=== PATIENT | female | born 1970 | race African-American/Black ===

== ENCOUNTER 2019-11-14 21:38 | Observation (INO) | payer OTHER, SELFPAY ==
[2019-11-14 22:19] LABS: Absolute Lymphocytes (CBC) 2.5 K/uL (0.7-4.9); Basophils % 1.1 % (0-1.3); Hematocrit 39.2 % (36.0-45.0); Lymphocytes % 36.5 % (15.3-44.8); MPV 9.2 fL (7.6-11.3)
[2019-11-14 22:38] LABS: ALT/SGPT 38 U/L (12-78); AST/SGOT 26 U/L (15-37); Albumin 3.5 g/dL (3.4-5.0); Alkaline Phosphatase 77 U/L (45-117); BUN Blood Urea Nitrogen 11 mg/dL (7-18); Bicarbonate 29 mmol/L (21-32); Bilirubin Direct 0.1 mg/dL (0-0.2); Bilirubin Total 0.5 mg/dL (0.2-1.0); Glucose Level 221 mg/dL (74-106); Lipase 137 U/L (73-393); NT PRO-BNP 62 pg/mL (<125); Potassium 3.6 mmol/L (3.5-5.1); Protein, Total 7.4 g/dL (6.4-8.2); Sodium Level 139 mmol/L (136-145); Troponin (Emerg Dept Use Only) < 0.02 ng/mL (0.0-0.045)
--- NOTE | 2019-11-14 22:55 | EDPHYS ---
Physician Documentation [facility] Name: Prakash Hughes Age: 49 yrs Sex: Female : 1970 Arrival Date: 11/14/2019 Time: 21:45 Bed 8 Private MD: ED Physician Edgar Jauregui HPI: 11/14 22:17 This 49 yrs old Black Female presents to ER via EMS with complaints of Chest Pain. rn 22:17 The patient or guardian reports chest pain that is located primarily in the substernal rn area. Onset: 2 week(s) ago. The pain does not radiate. Associated signs and symptoms: Pertinent positives: shortness of breath, Pertinent negatives: cough, diaphoresis, near syncope, syncope, vomiting. The chest pain is described as squeezing. Duration: The patient or guardian reports multiple episodes, that are intermittent. Modifying factors: The symptoms are alleviated by nothing. the symptoms are aggravated by exertion, twisting torso. Severity of pain: At its worst the pain was mild in the emergency department the pain has improved. The patient has not experienced similar symptoms in the past. Reports chest pain, intermittent for 2 weeks, central, feels tight, no radiation, reports worse with exertion and assoc with sob. Also worse when sleeping and turning over to left side. Reports chronic abdominal pain but denies new symptoms. No fever. No trauma. Had neg stress test and nuclear stress test 3 years ago. Non-smoker. Leaves on [employer] tomorrow and is from out of town, so came in for evaluation. . 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 - Coronavirus screen:: The patient has NOT traveled to [place] in the past 14 days. Proceed with normal triage process as indicated. - Social history:: Smoking status: unknown Patient/guardian denies using alcohol, street drugs. - Family history:: not pertinent. - Hospitalizations: : No recent hospitalization is reported. - Ebola Screening: : Patient negative for fever greater than or equal to 101.5 degrees Fahrenheit, and additional compatible Ebola Virus Disease symptoms Patient denies exposure to infectious person Patient denies travel to an Ebola-affected area in the 21 days before illness onset. ROS: 22:17 Constitutional: Negative for fever, chills, and weight loss, Eyes: Negative for injury, rn pain, redness, and discharge, Cardiovascular: Negative for palpitations Respiratory: Negative for cough, wheezing, and pleuritic chest pain, Abdomen/GI: Negative for vomiting, diarrhea, and constipation, has had 2 bowel movements today MS/Extremity: Negative for injury and deformity, Skin: Negative for injury, rash, and discoloration, Neuro: Negative for headache, weakness, numbness, tingling, and seizure. Exam: 22:07 ECG was reviewed by the Attending Physician. rn 22:17 Constitutional: This is a well developed, well nourished patient who is awake, alert, rn and in no acute distress. Head/Face: Normocephalic, atraumatic. Eyes: Pupils equal round and reactive to light, extra-ocular motions intact. Lids and lashes normal. Conjunctiva and sclera are non-icteric and not injected. Cornea within normal limits. Periorbital areas with no swelling, redness, or edema. ENT: MMM Cardiovascular: Regular rate and rhythm. No pulse deficits. Respiratory: Lungs have equal breath sounds bilaterally, clear to auscultation. No increased work of breathing, no retractions or nasal flaring. Abdomen/GI: soft, non-tender, non-distended Skin: Warm, dry MS/ Extremity: Pulses equal, no cyanosis. Neurovascular intact. Full, normal range of motion. Equal circumference. Neuro: Awake and alert, GCS 15, oriented to person, place, time, and situation. Cranial nerves II-XII grossly intact. Motor strength 5/5 in all extremities. Sensory grossly intact. Vital Signs: 21:45 BP 160 / 77; Pulse 78; Resp 19; Temp 98.4; Pulse Ox 99% ; Weight 78.02 kg; Height 5 ft. rr5 3 in. (160.02 cm); Pain 4/10; 22:12 BP 156 / 61; Pulse 69; Resp 18; Pulse Ox 99% ; rr5 22:45 BP 125 / 75; Pulse 74; Resp 16; Pulse Ox 99% on R/A; rr5 11/15 00:00 BP 116 / 57; Pulse 66; Resp 15; Pulse Ox 96% on R/A; rr5 01:06 BP 127 / 71; Pulse 60; Resp 16; Temp 98.4; Pulse Ox 99% on R/A; rr5 11/14 21:45 Body Mass Index 30.47 (78.02 kg, 160.02 cm) rr5 MDM: 11/14 21:53 Patient medically screened. rn 22:49 Differential diagnosis: acute myocardial infarction, acute pericarditis, anxiety, rn coronary artery disease chest wall pain, congestive heart failure Cholelithiasis costochondritis, esophagitis, gastritis, gastroesophageal reflux disease (GERD), pancreatitis, peptic ulcer disease, pericarditis, pleurisy, pneumothorax, stable angina. The patient was given aspirin in the Emergency Department. 22:50 Data reviewed: vital signs, nurses notes, lab test result(s), EKG, radiologic studies, rn plain films, and as a result, I will discharge patient. Counseling: I had a detailed discussion with the patient and/or guardian regarding: the historical points, exam findings, and any diagnostic results supporting the discharge/admit diagnosis, lab results, radiology results, the need for further work-up and treatment in the hospital. Response to treatment: the patient's symptoms have markedly improved after treatment, and as a result, I will discharge patient. Admission orders: after a detailed discussion of the patient's condition and case, the admit orders are written by me. ED course: Pt with ongoing chest pain for 2 weeks, neg trop, has HTN/HLD, no other acute cause found. . 11/14 21:53 Order name: Basic Metabolic Panel; Complete Time: 22:41 rn 11/14 21:53 Order name: CBC with Diff; Complete Time: 22:23 rn 11/14 21:53 Order name: LFT's; Complete Time: 22:41 rn 11/14 21:53 Order name: NT PRO-BNP; Complete Time: 22: rn 11/14 21:53 Order name: Troponin (emerg Dept Use Only); Complete Time: 22:41 rn 11/14 21:53 Order name: Lipase; Complete Time: 22:41 11/14 21:53 Order name: XRAY Chest (1 view) 11/14 21:53 Order name: EKG; Complete Time: 21:54 rn 11/15 00:13 Order name: Lipid Profile [facility] 11/15 00:13 Order name: Troponin I [facility] 11/15 00:13 Order name: Troponin I [facility] 11/15 00:26 Order name: CONS Physician Consult [facility] 11/15 00:26 Order name: Echo with Doppler [facility] 11/14 21:53 Order name: Cardiac monitoring; Complete Time: 21:59 rn 11/14 21:53 Order name: EKG - Nurse/Tech; Complete Time: 22:00 11/14 21:53 Order name: IV Saline Lock; Complete Time: 22:00 11/14 21:53 Order name: Labs collected and sent; Complete Time: 22:00 11/14 21:53 Order name: O2 Per Protocol; Complete Time: 22:00 11/14 21:53 Order name: O2 Sat Monitoring; Complete Time: 22: 11/15 00:27 Order name: EKG Electrocardiogram EDOH EC:07 Rate is 65 beats/min. Rhythm is regular. QRS [place] is Normal. [place] interval is normal. QRS rn interval is normal. QT interval is normal. No Q waves. T waves are Normal. No ST changes noted. Clinical impression: Normal ECG. Interpreted by me. Reviewed by me. Administered Medications: 22:51 CANCELLED (patient already received ASA from EMS): Aspirin Chewable Tablet 324 mg PO rr5 once; 81 mg tablets x 4 Disposition: 11/14/19 22:54 Hospitalization ordered by Montana Booker for Observation. Preliminary diagnosis is Chest pain, unspecified. - Bed requested for Telemetry/MedSurg (observation). - Status is Observation. rr5 - Condition is Stable. - Problem is new. - Symptoms have improved. Signatures: Dispatcher [employer] EDOH Edgar Jauregui MD MD rn Lasagna, Tonya RN RN tl1 Wilfredo Yang RN RN rr5 Corrections: (The following items were deleted from the chart) 22:51 22:50 Aspirin Chewable Tablet 324 mg PO once; 81 mg tablets x 4 ordered. rn rr5 11/15 00:52 11/14 22:54 Hospitalization Ordered by Montnaa Booker MD for Observation. Preliminary tl1 diagnosis is Chest pain, unspecified. Bed requested for Telemetry/MedSurg (observation). Status is Observation. Condition is Stable. Problem is new. Symptoms have improved. rn 11/15 01:05 11/14 21:50 Coronavirus screen: The patient HAS traveled to [place] in the past 14 days. rr5 The patient does NOT have a fever and/or cough. Proceed with normal triage procedures. rr5 11/15 00: 00:52 11/14/2019 22:54 Hospitalization Ordered by Montana Booker MD for Observation. rr5 Preliminary diagnosis is Chest pain, unspecified. Bed requested for Telemetry/MedSurg (observation). Status is Observation. Condition is Stable. Problem is new. Symptoms have improved. tl1
--- NOTE | 2019-11-14 22:55 | ER ---
Nurse's Notes [facility] Name: Prakash Hughes Age: 49 yrs Sex: Female : 1970 Arrival Date: 11/14/2019 Time: 21:45 Bed 8 Private MD: Diagnosis: Chest pain, unspecified Presentation: 11/14 21:40 Presenting complaint: EMS states: complaining of chest pain for 2 weeks, gets worse at rr5 night and when trying to lay down . audible wheezing sound noted. 21:40 Transition of care: patient was not received from another setting of care. Onset of rr5 symptoms was October 2019. Risk Assessment: Do you want to hurt yourself or someone else? Patient reports no desire to harm self or others. Initial Sepsis Screen: Does the patient meet any 2 criteria? No. Patient's initial sepsis screen is negative. Does the patient have a suspected source of infection? No. Patient's initial sepsis screen is negative. Care prior to arrival: IV cannula g 20 at right AC Medication(s) given: ASA, 325 mg, zofran 4 mg. 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 - Coronavirus screen:: The patient has NOT traveled to [place] in the past 14 days. Proceed with normal triage process as indicated. - Social history:: Smoking status: unknown Patient/guardian denies using alcohol, street drugs. - Family history:: not pertinent. - Hospitalizations: : No recent hospitalization is reported. - Ebola Screening: : Patient negative for fever greater than or equal to 101.5 degrees Fahrenheit, and additional compatible Ebola Virus Disease symptoms Patient denies exposure to infectious person Patient denies travel to an Ebola-affected area in the 21 days before illness onset. Screenin:45 Abuse screen: Denies threats or abuse. Denies injuries from another. Nutritional rr5 screening: No deficits noted. Tuberculosis screening: No symptoms or risk factors identified. Fall Risk IV access (20 points). Total Hodge Fall Scale indicates No Risk (0-24 pts). Assessment: 21:45 General: Appears in no apparent distress. uncomfortable, Behavior is calm, cooperative, rr5 appropriate for age. 21:45 Pain: Complains of pain in chest Pain radiates to back Pain currently is 4 out of 10 on rr5 a pain scale. Quality of pain is described as sharp, Pain began 2 weeks Is continuous. Neuro: Level of Consciousness is awake, alert, obeys commands, Oriented to person, place, time, situation, Appropriate for age. Cardiovascular: Reports chest pain, Capillary refill < 3 seconds Patient's skin is warm and dry. Respiratory: Airway is patent Respiratory effort is even, unlabored, Respiratory pattern is regular, symmetrical. GI: Abdomen is round non-distended, Reports upper abdominal pain, nausea, Pain is 4 out of 10 on a pain scale. : No signs and/or symptoms were reported regarding the genitourinary system. EENT: No signs and/or symptoms were reported regarding the EENT system. Derm: Skin is intact, is healthy with good turgor, Skin temperature is warm. Musculoskeletal: Circulation, motion, and sensation intact. Capillary refill < 3 seconds. 22:30 Reassessment: Patient appears in no apparent distress at this time. No changes from rr5 previously documented assessment. awaiting for results. 23:35 Reassessment: Patient appears in no apparent distress at this time. Patient is alert, rr5 oriented x 3, equal unlabored respirations, skin warm/dry/pink. ED provider reassess the patient and advised for admission. 11/15 00:19 Reassessment: Patient appears in no apparent distress at this time. Patient is alert, rr5 oriented x 3, equal unlabored respirations, skin warm/dry/pink. awaiting for room assignment. no complaints made. 01:08 Reassessment: Patient appears in no apparent distress at this time. Patient and/or rr5 family updated on plan of care and expected duration. Pain level reassessed. Patient is alert, oriented x 3, equal unlabored respirations, skin warm/dry/pink. for transfer to medical surgical floor, no complaints made. Vital Signs: 11/14 21:45 BP 160 / 77; Pulse 78; Resp 19; Temp 98.4; Pulse Ox 99% ; Weight 78.02 kg; Height 5 ft. rr5 3 in. (160.02 cm); Pain 4/10; 22:12 BP 156 / 61; Pulse 69; Resp 18; Pulse Ox 99% ; rr5 22:45 BP 125 / 75; Pulse 74; Resp 16; Pulse Ox 99% on R/A; rr5 11/15 00:00 BP 116 / 57; Pulse 66; Resp 15; Pulse Ox 96% on R/A; rr5 01:06 BP 127 / 71; Pulse 60; Resp 16; Temp 98.4; Pulse Ox 99% on R/A; rr5 11/14 21:45 Body Mass Index 30.47 (78.02 kg, 160.02 cm) rr5 ED Course: 11/14 21:45 Patient arrived in ED. rr5 21:45 Arm band placed on left wrist. rr5 21:45 Patient has correct armband on for positive identification. Placed in gown. Bed in low rr5 position. Call light in reach. threat monitoring analyst on. Pulse ox on. NIBP on. 21:45 Maintain EMS IV. Dressing intact. Good blood return noted. Site clean \T\ dry. Gauge \T\ rr 5 site: G20 right AC. 21:45 No provider procedures requiring assistance completed. Patient maintains SpO2 rr5 saturation greater than 95% on room air. 21:47 Triage completed. rr5 21:53 Edgar Jauregui MD is Attending Physician. rn 22:10 XRAY Chest (1 view) In Process Unspecified. EDMS 22:12 Wilfredo Yang, TAMMY is Primary Nurse. rr5 22:54 Montana Booker MD is Hospitalizing Provider. rn 11/15 01:07 Patient admitted, IV remains in place. intact, No redness/swelling at site. rr5 Administered Medications: 11/14 22:51 CANCELLED (patient already received ASA from EMS): Aspirin Chewable Tablet 324 mg PO rr5 once; 81 mg tablets x 4 Outcome: 22:54 Decision to Hospitalize by Provider. rn 11/15 01:06 Admitted to Med/surg accompanied by tech, via wheelchair, room 210, with chart, Report rr5 called to tom Condition: stable Instructed on the need for admit. 01: Patient left the ED. rr5 Signatures: Dispatcher [employer] Edgar Hilliard MD MD rn Roque, Raymond, RN RN rr5 Corrections: (The following items were deleted from the chart) 01:05 11/14 21:50 Coronavirus screen: The patient HAS traveled to [place] in the past 14 days. rr5 The patient does NOT have a fever and/or cough. Proceed with normal triage procedures. rr5
[2019-11-14] MEDS ORDERED: ACETAMINOPHEN 500 MG TAB PO PRN (23:59)
[2019-11-14] MEDS ORDERED: ALPRAZOLAM 0.25 MG TABLET PO PRN (23:59)
[2019-11-14] MEDS ORDERED: MORPHINE 4 MG/ML SYR IV PRN (23:59)
[2019-11-15 01:38] VITALS: BMI 31.4
[2019-11-15 01:58] VITALS: O2SAT 99
[2019-11-15] MEDS ORDERED: TRAMADOL HCL 50 MG TAB PO PRN (06:55)
--- NOTE | 2019-11-15 07:50 | RAD REPORT ---
EXAM DESCRIPTION: [place] Single View11/14/2019 10:11 pm CLINICAL HISTORY: Chest pain COMPARISON: none FINDINGS: The lungs appear clear of acute infiltrate. The heart is normal size IMPRESSION: No acute abnormalities displayed
[2019-11-15] MEDS ORDERED: DICYCLOMINE HCL 10 MG CAP PO PRN (08:00)
[2019-11-15 08:23] LABS: HDL Cholesterol 72 mg/dL (40-60); LDL Cholesterol, Calculated 81 (<130); Troponin I < 0.02 ng/mL (0.0-0.045)
[2019-11-15] MEDS ORDERED: REGADENOSON 0.4 MG/5 ML SYR IV ONE (08:36)
[2019-11-15] MEDS ORDERED: METOPROLOL TAR 50 MG TAB PO SCH (09:00)
[2019-11-15] MEDS ORDERED: ENOXAPARIN 40 MG/0.4 ML SQ SCH (09:00)
[2019-11-15] MEDS ORDERED: ASPIRIN EC 81 MG TAB PO SCH (09:00)
--- NOTE | 2019-11-15 09:34 | P.HP ---
Certification for Inpatient Patient admitted to: Observation With expected LOS: <2 Midnights Patient will require the following post-hospital care: None Practitioner: I am a practitioner with admitting privileges, knowledge of patient current condition, hospital course, and medical plan of care. Services: Services provided to patient in accordance with Admission requirements found in Title 42 Section 412.3 of the Code of Federal Regulations Patient History Date of Service: 11/15/19 Reason for admission: CP r/o ACS History of Present Illness: Patient is a very pleasant 49-year-old female who came into the hospital with chest discomfort. She also was having some epigastric pain. This started about 24-48 hours ago. She came into the ER because it was not improving. She has also had some lower extremity edema which she is not really sure what is causing it. In the emergency room she was evaluated with troponins and EKG which have been unremarkable. Chest x-rays also show no pulmonary edema. She does have a history of high blood pressure which has been poorly controlled. She also has some anxiety disorder. At this time because of her risk factors she will be admitted to the hospital for further evaluation. These risk factors include history of hypertension, family history of cardiac disease and also a history of secondhand smoke. we did talk to her about her edema of the lower extremity. She is not really sure what this is related to. She has never been told she has congestive heart failure. She has not noticed varicose veins. She has no liver or renal issues. She does have a diuretic that she takes and her blood pressure medications. She denies any ibuprofen use. Will go ahead and evaluate her while she is in the hospital with an echocardiogram as well as monitor her liver and renal function. Allergies No Known Allergies Allergy (Verified 11/15/19 01:46) Home Medications: Albuterol Inhaler [Ventolin Inhaler*] 2 puff IH Q6H PRN 11/15/19 Atorvastatin Calcium 20 mg PO BEDTIME 11/15/19 Dicyclomine HCl 20 mg PO Q6H PRN 11/15/19 Esomeprazole Mag Trihydrate [Nexium] 40 mg PO DAILY #30 capsule. 11/15/19 Linaclotide [Linzess] 145 mcg PO SEECOM 11/15/19 Lisinopril [Zestril] 10 mg PO BEDTIME 11/15/19 Lisinopril/Hydrochlorothiazide [Lisinopril-Hctz 10-12.5 mg Tab] 1 each PO DAILY 11/15/19 Metoprolol Tartrate [Lopressor*] 50 mg PO DAILY 11/15/19 Ondansetron [Zofran (Odt)*] 4 mg PO Q6H PRN 11/15/19 Tramadol HCl [Ultram] 50 mg PO Q6H PRN 11/15/19 - Past Medical/Surgical History Has patient received pneumonia vaccine in the past: No Diabetic: No -: hyperlipidemia -: hypertension -: pneumonia -: bowel obstruction -: hiatal hernia -: left ovary removed - Family History Father Family History: Reviewed- Non-Contributory - Social History Smoking Status: Never smoker Alcohol use: No CD- Drugs: Yes Caffeine use: Yes Place of Residence: Home Review of Systems 10-point ROS is otherwise unremarkable Physical Examination - Vital Signs Temperature: 98.1 F Blood Pressure: 161/69 Pulse: 59 Respirations: 16 Pulse Ox (%): 98 - Physical Exam General: Alert, In no apparent distress, Oriented x3 HEENT: Atraumatic, PERRLA, Mucous membr. moist/pink, EOMI, Sclerae nonicteric Neck: Supple, 2+ carotid pulse no bruit, No LAD, Without JVD or thyroid abnormality Respiratory: Clear to auscultation bilaterally, Normal air movement Cardiovascular: Regular rate/rhythm, Normal S1 S2, No rubs, No murmurs Gastrointestinal: Normal bowel sounds, Soft and benign, Non-distended, No tenderness, No rebound, No guarding Musculoskeletal: No clubbing, No swelling, No tenderness Integumentary: No rashes Neurological: Normal gait, Normal speech, Normal strength at 5/5 x4 extr, Normal tone, Sensation intact, Cranial nerves 3-12 intact, Normal affect Lymphatics: No axilla or inguinal lymphadenopathy - Studies Laboratory Data (last 24 hrs) 11/14/19 21:50: WBC 6.9, Hgb 13.0, Hct 39.2, Plt Count 332 11/14/19 21:50: Sodium 139, Potassium 3.6, BUN 11, Creatinine 1.10, Glucose 221 H, Total Bilirubin 0.5, AST 26, ALT 38, Alkaline Phosphatase 77, Lipase 137 Assessment & Plan - Problems (Diagnosis) (1) Chest pain, rule out acute myocardial infarction Status: Acute (2) Bilateral lower extremity edema Status: Acute (3) History of hypertension Status: Acute (4) Secondhand smoke exposure Status: Acute (5) Family history of heart disease Status: Acute - Plan 1. Serial troponins and EKG 2. Cardiology consultation 3. Echocardiogram and inpatient stress test(pending cardiology evaluation) 4. Anti-platelet therapy, anti coagulation, beta-tessie, statin, and O2 as needed 5. IV morphine for pain 6. Nitro p.r.n. Discharge Plan: Home Plan to discharge in: 24 Hours - Advance Directives Does patient have a Living Will: No Does patient have a Durable POA for Healthcare: No - Code Status/Comfort Care Code Status Assessed: Yes Code Status: Full Code Critical Care: No Time Spent Managing PTS Care (In Minutes): 45
--- NOTE | 2019-11-15 10:09 | EKG ---
Test Date: 2019-11-14 Test Time: 22:00:36 Vocational Coordinator: MEDARDO MEASUREMENT RESULTS: Intervals: Rate: 65 LA: 114 QRSD: 82 QT: 426 QTc: 443 [place]: P: 59 LA: 114 QRS: 43 T: 0 INTERPRETIVE STATEMENTS: Normal sinus rhythm with sinus arrhythmia Normal ECG No previous ECG available for comparison Electronically Signed On 11-15-19 10:08:42 BLACK STUDIES PROFESSOR by Wayne Collins
--- NOTE | 2019-11-15 11:14 | P.DS ---
Admission Date: 11/15/19 Discharge Date: 11/15/19 Primary Care Provider: Dr. Arevalo([facility]) Disposition: ROUTINE DISCHARGE Discharge Condition: GOOD Reason for Admission: CP r/o ACS Consultations: Cardiology-Dr. Collins Procedures: CXR: Unremarkable Cardiac stress test: COMPARISON: No comparisons TECHNIQUE: The patient was administered approximately 10mCi of Tc 99m Sestamibi prior to resting SPECT imaging of the heart. The patient was then administered approximately 30 mCi of Tc 99m Sestamibi following exercise or pharmacologic stress. Multiplanar SPECT images were reviewed. FINDINGS: No stress induced ischemic defect is seen to suggest stress induced ischemia. No fixed defect is seen to suggest hibernating myocardium or scarred myocardium. The end diastolic volume is 67 ml, the end systolic volume is 18 ml, and the ejection fraction is 74 %. IMPRESSION: No stress induced ischemia. Medical Problem List: Chest pain likely noncardiac Hypertension GERD Hyperlipidemia Brief History of Present Illness: 49-year-old female presented to the emergency room with chest pain. Patient was admitted for further evaluation. Patient with underlying hypertension. Hospital Course: Patient presented with chest pain. Patient admitted for further evaluation. Patient had prior stress tests in the past that was unremarkable. Cardiac enzymes unremarkable. Cardiology consulted. Echocardiogram obtained. Cardiac stress test performed. Cardiac stress test showed no stress-induced ischemia. No further intervention required. At discharge patient may continue with aspirin 81 mg daily. Recommend follow up with her PCP in 1-2 weeks to follow up this hospitalization. Patient had come down from [place] for a cruise in [place]. Patient with underlying hypertension. Blood pressure stable. At discharge patient may continue with her current medications-Lopressor 50 mg daily, lisinopril hydrochlorothiazide 10/12.5 mg in the morning and lisinopril 10 mg at bedtime. Recommend to monitor blood pressures daily. Recommend blood pressures to remain less than 150/80. Further adjustment in medication can be done by her PCP. Patient likely with underlying GERD. At discharge patient may continue with Nexium 40 mg daily. Patient would benefit with GI evaluation as an outpatient to further address. Patient with hyperlipidemia. At discharge she may continue with Lipitor 20 mg daily. Vital Signs/Physical Exam: Temp Pulse Resp BP Pulse Ox 98.1 F 59 16 161/69 H 98 11/15/19 09:34 11/15/19 09:34 11/15/19 09:34 11/15/19 09:34 11/15/19 09:34 General: Alert, In no apparent distress, Oriented x3, Cooperative HEENT: Atraumatic Neck: Supple Respiratory: Clear to auscultation bilaterally, Normal air movement Cardiovascular: Normal pulses, Regular rate/rhythm Gastrointestinal: Normal bowel sounds, Soft and benign, Non-distended Integumentary: No tenderness/swelling, No erythema, No warmth, No cyanosis Neurological: Normal speech, Normal strength at 5/5 x4 extr, Normal tone, Normal affect Laboratory Data at Discharge: WBC 6.9 K/uL (4.3-10.9) 11/14/19 21:50 Hgb 13.0 g/dL (12.0-15.0) 11/14/19 21:50 Hct 39.2 % (36.0-45.0) 11/14/19 21:50 Plt Count 332 K/uL (152-406) 11/14/19 21:50 Sodium 139 mmol/L (136-145) 11/14/19 21:50 Potassium 3.6 mmol/L (3.5-5.1) 11/14/19 21:50 BUN 11 mg/dL (7-18) 11/14/19 21:50 Creatinine 1.10 mg/dL (0.55-1.3) 11/14/19 21:50 Glucose 221 mg/dL (74-106) H 11/14/19 21:50 Total Bilirubin 0.5 mg/dL (0.2-1.0) 11/14/19 21:50 AST 26 U/L (15-37) 11/14/19 21:50 ALT 38 U/L (12-78) 11/14/19 21:50 Alkaline Phosphatase 77 U/L (45-117) 11/14/19 21:50 Troponin I < 0.02 ng/mL (0.0-0.045) 11/15/19 07:49 Triglycerides 68 mg/dL (<150) 11/15/19 07:49 Cholesterol 167 mg/dL (<200) 11/15/19 07:49 HDL Cholesterol 72 mg/dL (40-60) H 11/15/19 07:49 Cholesterol/HDL Ratio 2.32 11/15/19 07:49 Lipase 137 U/L (73-393) 11/14/19 21:50 Home Medications: Albuterol Inhaler [Ventolin Inhaler*] 2 puff IH Q6H PRN 11/15/19 Atorvastatin Calcium 20 mg PO BEDTIME 11/15/19 Dicyclomine HCl 20 mg PO Q6H PRN 11/15/19 Esomeprazole Mag Trihydrate [Nexium] 40 mg PO DAILY #30 capsule. 11/15/19 Linaclotide [Linzess] 145 mcg PO SEECOM 11/15/19 Lisinopril [Zestril] 10 mg PO BEDTIME 11/15/19 Lisinopril/Hydrochlorothiazide [Lisinopril-Hctz 10-12.5 mg Tab] 1 each PO DAILY 11/15/19 Metoprolol Tartrate [Lopressor*] 50 mg PO DAILY 11/15/19 Ondansetron [Zofran (Odt)*] 4 mg PO Q6H PRN 11/15/19 Tramadol HCl [Ultram] 50 mg PO Q6H PRN 11/15/19 New Medications: Esomeprazole Mag Trihydrate [Nexium] 40 mg PO DAILY #30 capsule. Patient Discharge Instructions: 1. Recommend follow up with PCP in 1-2 weeks to follow up this hospitalization. 2. Patient presented with chest pain. Patient admitted for further evaluation. Patient had prior stress tests in the past that was unremarkable. Cardiac enzymes unremarkable. Cardiology consulted. Echocardiogram obtained. Cardiac stress test performed. No further intervention required. At discharge patient may continue with aspirin 81 mg daily. Recommend follow up with her PCP in 1-2 weeks to follow up this hospitalization. Patient had come down from [place] for a cruise in [place]. 3. Patient with underlying hypertension. Blood pressure stable. At discharge patient may continue with her current medications-Lopressor 50 mg daily, lisinopril hydrochlorothiazide 10/12.5 mg in the morning and lisinopril 10 mg at bedtime. Recommend to monitor blood pressures daily. Recommend blood pressures to remain less than 150/80. Further adjustment in medication can be done by her PCP. 3. Patient likely with underlying GERD. At discharge patient may continue with Nexium 40 mg daily. Patient would benefit with GI evaluation as an outpatient to further address. 4. Patient with hyperlipidemia. At discharge she may continue with Lipitor 20 mg daily. Diet: AHA Activity: Ad dora Time spent managing pt's care (in minutes): 55
--- NOTE | 2019-11-15 12:00 | RAD REPORT ---
EXAM DESCRIPTION: NM - Rest Stress Cardiac Imaging - 11/15/2019 11:48 am CLINICAL HISTORY: CP Chest pain. COMPARISON: No comparisons TECHNIQUE: The patient was administered approximately 10mCi of Tc 99m Sestamibi prior to resting SPE CT imaging of the heart. The patient was then administered approximately 30 mCi of Tc 99m Sestamibi f ollowing exercise or pharmacologic stress. Multiplanar SPECT images were reviewed. FINDINGS: No stress induced ischemic defect is seen to suggest stress induced ischemia. No fixed def ect is seen to suggest hibernating myocardium or scarred myocardium. The end diastolic volume is 67 ml, the end systolic volume is 18 ml, and the ejection fraction is 74 %. IMPRESSION: No stress induced ischemia.
--- NOTE | 2019-11-15 12:01 | CON ---
Date of Consultation: 11/15/[address] Cunha' on 11/15/2019. I saw the patient on 11/15/2019. Reason For Consultation: Chest pain. History Of Present Illness: Ms. 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 She has a history of hypertension, dyslipidemia. Previous history of pneumonia and history of small bowel obstruction without surgery. She came in with sharp stabbing c hest pain when she took a deep breath. Her pain, however, radiated to the arm and the back. She has also had some edema. Denied PND, orthopnea, palpitations, or syncope. Denied any nausea, vomiting, or diaphoresis. She denied any fever or chills. So far she has ruled out for an ID. Past Medical History: As stated earlier. Medications: Include Lipitor, inhalers, lisinopril with HCT and metoprolol. Review of Systems: Negative. Social History: Negative. Family History: Negative. Physical Examination: Vital Signs: Stable. Afebrile. HEENT: Negative. Neck: Supple with no bruit. Chest: Clear. Cardiac: Exam revealed a regular rhythm and rate. No murmurs, gallops, or rubs. Abdomen: Benign. Extremities: Revealed no clubbing, cyanosis, or edema. Diagnostic Data: All within normal limits. Impression And Plan: 1.Atypical chest pain, most likely pleuritic in nature. Echocardiogram and stress test have been or dered by Dr. Cunha. We will see what those shows prior to making any final decisions. 2.Dyslipidemia, on Lipitor. 3.Hypertension, well controlled. 4.History of pneumonia. 5.History of bowel obstruction. I will continue to follow her along with Dr. Cunha. CHIP/JAMIE Voice ID: [id number] Report ID: [id number]
--- NOTE | 2019-11-15 13:45 | TREADPHA ---
DX: CHEST PAIN Date of Study: Ht: 5 3 Wt: 177 lb 6.4 oz Consulting Physician: MAEGAN MEDICATIONS: TYLENOL, ASPIRIN, LOVENOX, LOPRESSOR HISTORY: 49 YEAR OLD FEMALE WITH HISTORY OF HYPERTENSION, HYPERLIPIEMIA, NON SMOKER AND NON DRINKER. PHYSICIAL EXAMINATION: RESTING B.P.: 150/84 RESTING H.R.: 65 RESTING EKG: NORMAL PROTOCOL: LEXISCAN EXERCISE TIME: 3:30 B.P. AT PEAK STRESS: 141/83 IMPRESSION: LEXISCAN INJECTED, FOLLOWED BY CARDIOLITE PER PROTOCOL. SEE NUCLEAR MEDICINE REPORT. NO SUPRAVENTRICULAR TACHYCARDIA, VENTRICULAR TACHYCARDIA, PREMATURE ATRIAL COMPLEXES OR PREMATURE VENTRICULAR TACHYCARDIA. PATIENT REPORTED NO CHEST PAIN.
[2019-11-15] MEDS ORDERED: lisinopriL 10 MG TAB PO SCH (21:00)
[2019-11-15] MEDS ORDERED: ATORVASTATIN 20 MG TAB PO SCH (21:00)
[2019-11-16 01:21] VITALS: BP 161/69; TEMP 98.1
--- NOTE | 2019-11-16 08:39 | ECHO ---
HEIGHT: 5 ft 3 in WEIGHT: 177 lb 6.4 oz DATE OF STUDY: 11/15/[address]: Montana Booker MD 2-DIMENSIONAL: YES M.MODE: YES DOPPLER: YES COLOR FLOW: YES TDS: NO PORTABLE: NO DEFINITY: NO BUBBLE STUDY: NO DIAGNOSIS: CHEST PAIN CARDIAC HISTORY: CATHERIZATION: NO SURGERY: NO PROSTHETIC VALVE: NO PACEMAKER: NO MEASUREMENTS (cm) DIASTOLIC (NORMALS) SYSTOLIC (NORMALS) IVSd 0.9 (0.6-1.2) LA Diam 3.3 (1.9-4.0) LVEF 69% LVIDd 4.2 (3.5-5.7) LVIDs 2.6 (2.0-3.5) %FS 39% LVPWd 1.1 (0.6-1.2) Ao Diam 2.8 (2.0-3.7) 2 DIMENSIONAL ASSESSMENT: RIGHT ATRIUM: NORMAL LEFT ATRIUM: NORMAL RIGHT VENTRICLE: NORMAL LEFT VENTRICLE: NORMAL TRICUSPID VALVE: NORMAL MITRAL VALVE: NORMAL PULMONIC VALVE: NORMAL AORTIC VALVE: NORMAL PERICARDIAL EFFUSION: NONE AORTIC ROOT: NORMAL LEFT VENTRICULAR WALL MOTION: NORMAL DOPPLER/COLOR FLOW: NORMAL COMMENTS: NORMAL 2D ECHOCARDIOGRAM WITH DOPPLER. NO WALL MOTION ABNORMALITY. NO EFFUSION. TECHNOLOGIST: Vaughn LAFLEUR
== END 2019-11-15 20:30 | disposition home or self-care (01) ==
LOC: ER 21:38 → ERHOLD 11-15 00:59 → 2ND 11-15 01:07
PROVIDERS: ADMIT Hospitalist; ATTEND Hospitalist
DX: R07.9 Chest pain, unspecified (principal); I10 Essential (primary) hypertension; K21.9 Gastro-esophageal reflux disease without esophagitis; E78.5 Hyperlipidemia, unspecified
CPT/HCPCS: 93005; 93017; 93306; 85025; 80048; 36415; 80061; 80076; 84484 ×3; 83690; 83880; 87804 ×2; 71045; 78452; 99285; J1650; J2785; A9500; G0378 ×2